=== PATIENT | male | born 1990 | race Two or more races ===

== ENCOUNTER 2021-03-23 10:36 | Outpatient (REF) | payer OTHER, SELFPAY ==
--- NOTE | ~2021-03-23 | XR_ITS ---
EXAMINATION: XR CHEST CLINICAL INFORMATION: Morbid/severe obesity due to excess calories COMPARISON: None TECHNIQUE: 2 views of the chest were obtained. FINDINGS: No significant abnormality is noted involving the heart, lungs, mediastinum, bony thorax or soft tissues. XR/XR chest 2V IMPRESSION: Unremarkable chest examination.
--- NOTE | 2021-03-23 13:24 | ECG_ITS ---
Test Reason : MORBID OBESITY Blood Pressure : / mmHG Vent. Rate : 066 BPM Atrial Rate : 066 BPM P-R Int : 164 ms QRS Dur : 100 ms QT Int : 412 ms P-R-T Axes : 033 021 029 degrees QTc Int : 431 ms Normal sinus rhythm with sinus arrhythmia Normal ECG No previous ECGs available Referred By: Yaneth Fernando Electronically Signed By:GUZMAN BARGER
[2021-03-23 13:32] LABS: MANUAL DIFF FLAG NO
[2021-03-23 13:46] LABS: Basophils Percent Auto 0.3 % (0-2); Eosinophils Absolute Auto 0.1 X10*3/uL (0.0-0.4); Eosinophils Percent Auto 2.2 % (0-4); Hemoglobin 14.6 g/dl (14.0-18.0); Imm Gran Abs Auto 0.01 X10*3/uL (0.00-0.03); Imm Gran Pct Auto 0.2 % (0.0-0.4); Lymphocytes Absolute Auto 2.2 X10*3/uL (1.2-4.9); Lymphocytes Percent Auto 36.7 % (20-40); Mean Corpuscular HGB Conc 33.2 g/dl (31.0-36.0); Mean Corpuscular Hemoglobin 27.1 pg (27.0-33.0); Mean Corpuscular Volume 81.6 fL (80-98); Monocytes Absolute Auto 0.3 X10*3/uL (0.1-1.2); Monocytes Percent Auto 5.5 % (2-11); Neutrophils Absolute Auto 3.3 X10*3/uL (2.0-8.3); Neutrophils Percent Auto 55.1 % (45-73); Platelet Count 301 X10*3/uL (160-400); Red Blood Count 5.39 X10*6/uL (4.60-5.80); Red Cell Distribution Width 13.1 % (11.0-16.0)
[2021-03-23 13:53] LABS: Estimated Average Glucose 97 mg/dL
[2021-03-23 13:58] LABS: Alanine Aminotransferase 32 U/L (0-40); Alkaline Phosphatase 101 U/L (39-117); Anion Gap 9 (12-20); Aspartate Amino Transferase 26 U/L (5-37); Bilirubin Total 0.7 mg/dL (0.0-1.0); Blood Urea Nitrogen 11 mg/dL (9-16); C Reactive Protein 0.99 mg/dL (< or = 0.50); Calcium 9.3 mg/dL (8.4-10.2); Carbon Dioxide 29 mmol/L (22-29); Chloride 106 mmol/L (96-108); Cholesterol 173 mg/dL; Estimated Glomerular Filt Rate > 60; Glucose Random 83 mg/dL (60-115); HDL Cholesterol 48 mg/dL; Iron 63 mcg/dL (45-160); LDL Cholesterol Calculated 111 mg/dl; Percent Iron Saturation 19 % (15-50); Potassium 4.1 mmol/L (3.3-5.1); Sodium 140 mmol/L (135-145); Total Iron Binding Capacity 329 mcg/dL (228-428); Total Protein 7.4 g/dL (6.5-8.0); Triglycerides 72 mg/dL; Unsaturated Iron Binding 266 ug/dL
[2021-03-23 14:18] LABS: Ferritin 122 ng/mL (20-250); TSH reflex Free T4 1.83 uIU/mL (0.32-4.0); Vitamin D 25-OH Total 12.4 ng/mL (>30)
[2021-03-23 14:27] LABS: Folate 9.4 ng/mL (> or = 4.0); Vitamin B12 259 pg/mL (200-900)
[2021-03-25 02:52] LABS: Insulin Level Total 12.6 uIU/mL
[2021-03-25 13:27] LABS: H Pylori Breath Test NOT DETECTED (NOT DETECTED)
[2021-03-27 00:26] LABS: Zinc 59 mcg/dL (60-130)
[2021-03-27 06:31] LABS: PTHI 85 pg/mL (14-64)
[2021-03-27 11:22] LABS: Vitamin B1 12 nmol/L (8-30)
[2021-03-30 17:32] LABS: Vitamin A 36 mcg/dL (38-98)
== END 2021-03-23 10:37 | disposition home or self-care (01) ==
LOC: HO.LAB 10:36
PROVIDERS: Visit Provider Physician Assistant
DX: Z01.818 Encounter for other preprocedural examination (principal); E66.01 Morbid (severe) obesity due to excess calories; Z71.3 Dietary counseling and surveillance
CPT/HCPCS: 36415; 71046; 80053; 80061; 82306; 82607; 82728; 82746; 83013; 83036; 83525; 83540; 83970; 84425; 84443; 84590; 84630; 85025; 86140; 93005; 99202; 99211

== ENCOUNTER → 2021-04-06 08:03 | Outpatient (BNVA) | payer OTHER, SELFPAY | PROVIDERS: Visit Provider Physician Assistant ==

== ENCOUNTER → 2022-11-08 09:34 | Outpatient (BNVA) | payer OTHER, SELFPAY | PROVIDERS: Visit Provider Physician Assistant Surgical ==

== ENCOUNTER 2022-12-07 | Outpatient (REF) | payer OTHER, SELFPAY ==
[2022-12-10 14:59] LABS: H Pylori Breath Test Negative (Negative)
== END 2022-12-07 00:01 | disposition home or self-care (01) ==
LOC: HO.LNP
PROVIDERS: Visit Provider Physician Assistant
DX: Z01.818 Encounter for other preprocedural examination (principal); E66.01 Morbid (severe) obesity due to excess calories; J45.909 Unspecified asthma, uncomplicated; Z11.0 Encounter for screening for intestinal infectious diseases
CPT/HCPCS: 83013

== ENCOUNTER → 2022-12-07 11:08 | Outpatient (BNVA) | payer OTHER, SELFPAY | PROVIDERS: Visit Provider Physician Assistant | DX: Z01.818 Encounter for other preprocedural examination (principal); Z11.0 Encounter for screening for intestinal infectious diseases; E66.01 Morbid (severe) obesity due to excess calories; J45.909 Unspecified asthma, uncomplicated; Z68.44 Body mass index [BMI] 60.0-69.9, adult | CPT/HCPCS: 99211; 99212 ==

== ENCOUNTER → 2022-12-27 09:00 | Outpatient (BNVA) | payer OTHER, SELFPAY | PROVIDERS: Referring Provider Physician Assistant; Visit Provider Counselor Mental Health ==